=== PATIENT | male | born 1950 | race Caucasian/White ===

== ENCOUNTER 2019-12-13 12:39 | Outpatient (CLI) | payer MEDICARE, SELFPAY ==
--- NOTE | 2019-12-13 12:48 | US_ITS ---
WS: [id number] RENAL ULTRASOUND HISTORY: CKD STAGE 3 COMPARISON: None available. TECHNIQUE: 2-D and color Doppler imaging of the kidney submitted. Right kidney: 11.4 cm x 4.2 cm x 4.0 cm. Normal size kidney. Calcification in the mid renal cortex measures 9 mm. No hydronephrosis or solid m ass. Normal echogenicity. No adenopathy. There are a few small cortical defects from scarring in the central kidney. Left kidney: 10.4 cm x 4.3 cm x 5.4 cm. Normal size kidney. No hydronephrosis or mass. Calcifications in the superior renal cortex measures 1 2 mm. No obstruction. There are a few lobulations and areas of cortical thinning. Aorta: Normal. Urinary Bladder: Normal distention. US/US renal BI* [id number] IMPRESSION: 1. No hydronephrosis or significant chronic medical renal disease. 2. Bilateral nephrolithiasis with a few areas of cortical thinning and scarrin g.
== END 2019-12-13 12:40 | disposition home or self-care (01) ==
LOC: RAD 12:44
PROVIDERS: Visit Provider Internal Medicine
DX: N18.3 Chronic kidney disease, stage 3 (moderate) (principal); N20.0 Calculus of kidney
CPT/HCPCS: 76770